=== PATIENT | female | born 1975 | race Caucasian/White ===

== ENCOUNTER 2017-03-22 07:22 | Day surgery (SDC) | payer OTHER ==
[~2017-03-22] VITALS: Ht 157.5 cm; Wt 86.0 kg
[~2017-03-22 07:22] MED LIST: 0.9% Sodium Chloride 1,000 ML IV SCH; ASPI81TA3 PO; FURO40TA4 PO; LEVO200T6 PO; LISI2.5T PO; METH750T3 PO; METO25TA3 PO; NPR500T PO; PANT40TA3 PO; SERT25TA6 PO; SPIR25TA3 PO; Sodium Chloride LOK Flush 10 mL Syringe IV PRN; fentaNYL-PF 50 mCg/mL 2 mL Inj IVPUSH PRN
[2017-03-22 07:36] VITALS: BP 115/63; PULSE 67; RESP 16; O2SAT 100
[2017-03-22 08:44] VITALS: BP 127/69; PULSE 65; RESP 16; O2SAT 98
[2017-03-22 08:54] VITALS: BP 118/68; PULSE 68; RESP 16; O2SAT 98
[2017-03-22 09:04] VITALS: BP 114/64; PULSE 68; RESP 16; O2SAT 98
--- NOTE | 2017-03-22 09:37 | ENDO ---
[address] [address] ENDOSCOPY PROCEDURE PATIENT: JUSTUS REGAN : 1975 MR#: [id number] ADMIT: 03/22/2017 JOB ID: [id number] DATE OF SERVICE: 03/22/2017 PREOPERATIVE DIAGNOSIS(ES): 1. Gastroesophageal reflux disease. 2. Abdominal pain. 3. Obstipation. POSTOPERATIVE DIAGNOSIS(ES): 1. Small hiatal hernia. 2. Normal colonoscopy to cecum. OPERATION: 1. Upper endoscopy with biopsy. 2. Colonoscopy into terminal ileum. SURGEON: Anam Edmond MD. INDICATIONS: A 42-year-old female, who has a past history of severe hypothyroidism resulting in nonischemic cardiomyopathy that resolved with replacement of her thyroid function. She has cholelithiasis. She has symptoms of GERD and abdominal pain and obstipation and at the request of Dr. Husain an upper endoscopy and colonoscopy were performed. FINDINGS: Her GE junction was at 36 cm from the incisors and the esophageal hiatus at 37 cm showing a 1 cm hiatal hernia. The distal esophageal mucosa was grossly normal, but it was biopsied. Retroflexed views of the cardia revealed a Hill Grade I flap valve. The fundus body and antrum of the stomach were grossly normal. Pylorus normal. Duodenum into the proximal third portion of the duodenum normal. Colon and terminal ileum and rectum normal. DESCRIPTION OF PROCEDURE: The procedure and sedation plan was discussed with the patient. Nursing staff and a procedural time-out was held. For both procedures she received 8 mg of Versed and 175 mcg of fentanyl. The Olympus GIF-H180J video endoscope was passed transorally, advanced into the proximal third portion of the duodenum, withdrawn with results stated above. Biopsies of the antrum were obtained for rapid H-pylori and of the gastroesophageal junction. She was repositioned a digital rectal exam was performed and the Olympus PCF-H190DL video colonoscope was passed transanally advanced into the terminal ileum withdrawn over 8 minutes 35 seconds. She had a good prep. There were no abnormalities including no evidence of polyps, inflammatory lesions, vascular lesions, or diverticulosis. Retroflexed views of the rectum were normal. IMPRESSION: 1. Small hiatal hernia. 2. Normal colonoscopy to the cecum. 3. The cause of her abdominal pain is not identified by the study. CC: WILLIAM Veras
--- NOTE | 2017-03-23 14:11 | PATH ---
SURGICAL PATHOLOGY Attending Physician:Vicki Carrasquillo CASE STATUS: Signed Out PATIENT NAME: JUSTUS REGAN PID: [id number] : 1975 DATE COLLECTED:03/22/2017 16:20 SPECIMEN: Esophagus, Biopsy CLINICAL HISTORY: 1. GEJ BX FINAL DIAGNOSIS: 1.GASTROESOPHAGEAL JUNCTION BIOPSIES: SQUAMOUS MUCOSA AND GASTRIC CARDIA-TYPE MUCOSA NEGATIVE FOR SPECIALIZED METAPLASIA OF MORAN' S-TYPE ESOPHAGUS. Negative for dysplasia and malignancy. Negative for squamous intraepithelial eosinophils. ICD10 K23.0 GROSS DESCRIPTION: The specimen is received in one formalin filled container labeled with the patient's name, sublabeled " GEJ " and consists of 3 portions of tissue which aggregate to 0.3 x 0.3 x 0.2 CM. The specimen is entirely submitted in one cassette. 03/22/2017 [facility] MICRO DESCRIPTION: See diagnosis. ICD-9 CODES: CPT CODES: 1: 73983 Electronically Signed Out Hakan Chou MD [facility] Pathology [facility] [address], [place] [address] Technical component performed at [facility], [facility] [address], [place], [address]
[2017-04-05] MEDS ORDERED: LEVO200T6 PO (10:37)
[2017-04-05] MEDS ORDERED: SERT50TA9 PO (10:37)
[2017-04-05] MEDS ORDERED: ROB500 PO (10:37)
[2017-04-05] MEDS ORDERED: MELO-259 PO (10:37)
[2017-04-05] MEDS ORDERED: ASPI-973 PO (10:37)
[2017-04-05] MEDS ORDERED: FUR20 PO (10:37)
[2017-04-05] MEDS ORDERED: TERB30CR15 TOPICAL (10:38)
[2017-04-05] MEDS ORDERED: SPIR25TA3 PO (10:38)
[2017-04-05] MEDS ORDERED: METO25TA3 PO (10:38)
== END 2017-03-22 23:59 | disposition home or self-care (01) ==
LOC: END 07:22
PROVIDERS: ATTEND Surgery
DX: K21.0 Gastro-esophageal reflux disease with esophagitis (principal); R10.9 Unspecified abdominal pain; K44.9 Diaphragmatic hernia without obstruction or gangrene; R19.4 Change in bowel habit; I10 Essential (primary) hypertension; I50.9 Heart failure, unspecified; I42.9 Cardiomyopathy, unspecified; I44.4 Left anterior fascicular block; E03.9 Hypothyroidism, unspecified; K80.20 Calculus of gallbladder without cholecystitis without obstruction; G47.33 Obstructive sleep apnea (adult) (pediatric); F32.9 Major depressive disorder, single episode, unspecified; N28.9 Disorder of kidney and ureter, unspecified; Z79.82 Long term (current) use of aspirin; F17.210 Nicotine dependence, cigarettes, uncomplicated
CPT/HCPCS: 43239; 45378; 88305; 99152; 99153; J7030

== ENCOUNTER 2017-04-09 05:40 | Day surgery (SDC) | payer OTHER ==
[~2017-04-09] VITALS: Ht 157.5 cm; Wt 87.2 kg
[2017-04-09] VITALS (11 sets, daily range): BP systolic 93–132; BP diastolic 53–77; PULSE 60–75; RESP 11–32; O2SAT 93–96
[~2017-04-09 05:40] MED LIST changes: -0.9% Sodium Chloride 1,000 ML IV SCH; +ASPI-973 PO; -ASPI81TA3 PO; +FUR20 PO; -FURO40TA4 PO; -LISI2.5T PO; +Lactated Ringer's 1,000 ML IV ONE; +MELO-259 PO; -METH750T3 PO; -NPR500T PO; -PANT40TA3 PO; +ROB500 PO; -SERT25TA6 PO; +SERT50TA9 PO; -Sodium Chloride LOK Flush 10 mL Syringe IV PRN; +TERB30CR15 TOPICAL; -fentaNYL-PF 50 mCg/mL 2 mL Inj IVPUSH PRN
[2017-04-09] MEDS ORDERED: Ondansetron 2 mg/mL 2 mL Inj ONE (05:41)
[2017-04-09] MEDS ORDERED: Glycopyrrolate 0.2 MG/ML 1mL Inj ONE (05:41)
[2017-04-09] MEDS ORDERED: Dexamethasone 4 mg/mL Inj ONE (05:41)
[2017-04-09] MEDS ORDERED: Propofol 10 mg/mL 20 mL Inj ONE (05:41)
[2017-04-09] MEDS ORDERED: MetoCLOpramide 5 mg/mL 2 mL Inj ONE (05:41)
[2017-04-09] MEDS ORDERED: Rocuronium 10 mg/mL 5 mL Inj ONE (05:41)
[2017-04-09] MEDS ORDERED: Neostigmine 1 mg/mL 10 mL Inj ONE (05:41)
[2017-04-09] MEDS ORDERED: MeTOProlol 1 mg/mL 5 mL Inj ONE (05:41)
[2017-04-09] MEDS ORDERED: fentaNYL-PF 50 mCg/mL 2 mL Inj ONE (05:41)
--- NOTE | 2017-04-09 07:19 | PCM.HPANE ---
Patient Data Surgeon Admitting Provider: Attending Provider:Abebe Husain MD Primary Care Physician:Ivana Traore Other Provider:Manan Harris Anesthesia Reason for Visit Cholecystitis Ht/WT & BMI Height (Feet): 5 Height (Inches): 2 Weight (Kilograms): 87.2 Body Mass Index 35.00 Allergies Coded Allergies: No Known Allergies (Verified Allergy, Unknown, 06/28/15) Past Anesthesia History Anesthesia History: Denies:: Abnormal Airway, Anesthesia Reactions, Difficult Intubation, Fam Anesthesia Reaction, Fam Malignant Hypertherm, Malignant Hyperthermia Diabetes History Hx Diabetes?: No MRSA MRSA: No Medications Blood Thinner: Aspirin Hypertension Medication: Yes Home Meds Incl Beta Mihai: Yes Date Beta Mihai Taken: Apr 08, 2017 Time Beta Mihai Taken: 0800 Reported Medications Metoprolol Succinate ER (Toprol XL)25 Mg Hvlayz79 Mg PO DAILY Ref 0 04/05/17 Terbinafine Cream 30 Gm Cream..g.1 Applic TOPICAL PRN skin irritation #30 GM 04/05/17 Spironolactone 25 Mg Twgnxv94 Mg PO DAILY #30 TABLET Ref 0 04/05/17 Sertraline HCl (Sertraline)50 Mg Vdtzma82 Mg PO DAILY 30 Days Ref 0 04/05/17 Methocarbamol 500 Mg Nwdqae233 Mg PO PRN For Spasm 04/05/17 Meloxicam 7.5 Mg Tablet7.5 Mg PO DAILY 30 Days Ref 0 04/05/17 Levothyroxine 200 Mcg Zqktup841 Mcg PO DAILY Ref 0 04/05/17 Furosemide 20 Mg Tab20 Mg PO DAILY 30 Days Ref 0 04/05/17 Aspirin 81 Mg Rcwvob28 Mg PO DAILY Ref 0 04/05/17 Discontinued Reported Medications Pantoprazole DR 40 Mg Tablet.dr40 Mg PO DAILY Ref 0 03/20/17 Levothyroxine 200 Mcg Vttjin908 Mcg PO DAILY Ref 0 03/20/17 Metoprolol Succinate ER (Toprol XL)25 Mg Ebqzsk49 Mg PO DAILY Ref 0 03/20/17 Sertraline HCl (Sertraline)25 Mg Wvqugx35 Mg PO DAILY 30 Days Ref 0 03/20/17 Furosemide 40 Mg Mubscp47 Mg PO DAILY 03/20/17 Lisinopril 2.5 Mg Tablet2.5 Mg PO DAILY 30 Days Ref 0 03/16/15 Aspirin Chew 81 Mg Tab.chew81 Mg PO DAILY #1 BOTTLE Ref 0 03/16/15 Spironolactone 25 Mg Jdnufl35 Mg PO DAILY #30 TABLET Ref 0 03/16/15 Discontinued Scripts Methocarbamol 750 Mg Dsvlwj259 Mg PO QID PRN For Spasm #20 TABLET Ref 0 Prov:Jett Marquis RADIATOR SPECIALIST 06/28/15 Naproxen 500 Mg Vuj067 Mg PO BID PRN For Pain #20 TABLET Ref 0 Prov:Jett Marquis RADIATOR SPECIALIST 06/28/15 History History of ENT Problems?: No HEENT History: Denies:: Abnormal Airway Cataracts Difficult Intubation Dysphagia Glaucoma Hearing Problem Sinus Problem TMJ Denture Type: None Teeth Condition: Within Normal Limits Hx of Heart Problems?: Yes Cardiovascular History: Positive for:: Coronary Artery Disease (cardiomyopathy ) Hypertension Denies:: AICD Pacemaker Valvular Heart Disease (echo 2016- ef 60-65%) Hx of Respiratory Problem?: No Respiratory History: Positive for:: Use of C-PAP Machine (prior use of- no longer has) Denies:: Asthma COPD Emphysema Oxygen Administration Pneumonia Tuberculosis Hx Neurologic Problems?: Yes Neurological History: Positive for:: Dizziness Seizures (episode 5 years ago- 3 seizures- MRI- Dr her nothing to be concerned ) Denies:: CVA Dementia Headaches Multiple Sclerosis Parkinson's Disease Hx of GI Problems?: Yes Hx of Problems?: Yes Genitourinary History: Positive for:: Kidney Stones (past hx of, passed spontaneously) Urinary Tract Infection (hx of chronic, none recently) Female Hx: Denies:: Currently Endometriosis Pelvic Inflammatory Problems with Breasts? Skin History: Denies:: History Skin Disorders? Pressure Ulcers Hx Musculoskeletal Problems?: Yes Musculoskeletal History: Positive for:: Back Injury (hx of back surgery) Osteoarthritis Denies:: Joint Replacement Musculoskeletal Trauma Myasthenia Gravis Rheumatoid Arthritis Hx of Psycho/Social Problems?: Yes Psycho Social History: Positive for:: Anxiety Hx Depression Hx Surgeries?: Yes (Back Surgery 01/2015) Hx Any Other Health Problems?: Yes Other History: Positive for:: Hospitalization Thyroid Disease (Lobito's) Denies:: Cancer History Blood Transfusions: Positive for:: Accept Blood Products? Denies:: Blood Transfusions Hx Diabetes: No Hx Alcohol Use: NoHx Substance Use: Yes (Marijuana edible and inhaled) Smoking Status: Current Every Day Smoker Have You Smoked inLast 12 mo: Yes (February 2017- hx of 14 cig daily) Stop/Bang Treated for Sleep Apnea?: No Do You Have a CPAP Machine?: No S-Snoring: Do You Snore Loudly: No T-Tired: feel tired, fatigued: Yes O-Obsered: Observed not breath: No P-Blood Pressure: treated: Yes B- Body Mass Index > 35 kg/m2: Yes A- Age over 50: No N- Neck Large Circumference: No G- Gender Male: No GLEN Total Score: 3 GLEN Risk Assessment: Low Risk, <3 Yes Risk Assessment Category Category 1A: Patient has history of documented sleep apnea, and HAS NOT received any narcotic, sedative or anesthesia administration during this stay. Category 1B: Patient has history of documented sleep apnea, and HAS received any narcotic , sedative or anesthesia administration during this stay Category 2: Patient has SUSPECTED Obstructive Sleep Apnea, and HAS received any narcotic , sedative or anesthesia administration during this stay. Category 3: Patient has SUSPECTED Obstructive Sleep Apnea and HAS NOT received narcotic, sedative or anesthesia administration during this stay. Category 4: Outpatient in Procedural Areas with known sleep apnea or who screen positive for High Risk via the STOP/BANG questionnaire. Exam Exam Vital Signs Vital Signs Date Time Temp Pulse Resp B/P Pulse Ox O2 Delivery O2 Flow Rate FiO2 04/09/17 06:06 36.2 70 16 114/72 95 Room Air General Appearance: Oriented X3 HEENT/AIRWAY: MP 2 Lungs: Normal Air Movement Heart: Regular Rate/Rhythm Meds/Labs/Diagnostics Admission Meds Current Medications Lactated Ringer's (Lr) 1,000 ml @ 10 mls/hr Q24H ONCE IV Last administered on 04/09/17t 06:01; Start 04/09/17 at 05:00; Stop 04/10/17 at 04:59 Plan Impression Patient chart reviewed, patient interviewed and anesthestic plan with risks, benefits, and alternatives discussed, and informed consent obtained. ASA Physical Status: ASA3 Severe Disease Anesthetic Plan: GA Bene/Risks/Altern/Consents: Yes HP Complete Prior to Induction: Yes Arvind Carrion MD Apr 09, 2017 07:19
[2017-04-09] MEDS: levoFLOXacin Inj 500 MG in IV Premix 1 EACH IV ONE ×2 (07:26→07:47)
[2017-04-09] MEDS ORDERED: Iopamidol-300 50 mL Inj IV ONE (07:46)
[2017-04-09] MEDS ORDERED: Bupivacaine-MPF 0.5% 30 mL Inj INFILTRATE ONE (07:46)
[2017-04-09] MEDS ORDERED: Lactated Ringer's 500 ML IV PRN (08:59)
[2017-04-09] MEDS ORDERED: Lactated Ringer's 1,000 ML IV SCH (08:59)
[2017-04-09] MEDS ORDERED: Ondansetron 2 mg/mL 2 mL Inj IVPUSH PRN (09:00)
[2017-04-09] MEDS ORDERED: Dexamethasone 4 mg/mL Inj IVPUSH PRN (09:00)
[2017-04-09] MEDS ORDERED: Phenylephrine 10,000 mCg/mL Inj IVPUSH PRN (09:00)
[2017-04-09] MEDS ORDERED: MetoCLOpramide 5 mg/mL 2 mL Inj IVPUSH PRN (09:00)
[2017-04-09] MEDS ORDERED: EPHEDrine Sulfate 50 mg/mL Inj IVPUSH PRN (09:00)
[2017-04-09] MEDS ORDERED: OXYC-474 PO (09:09)
[2017-04-09] MEDS ORDERED: POLY17PO6 PO (09:09)
--- NOTE | 2017-04-09 09:36 | PCM.SURGPO ---
Immediate Operative Note Date of Surgery: Apr 09, 2017 Pre Operative Diagnosis Cholelithiasis Post Operative Diagnosis Cholelithiasis Procedure Lapatroscopic Cholecystectomy with Cholangiogram Surgeon and Staffing Manager Surgeon: Abebe Husain MD Assistants: VARSHA Bradley, VARSHA Meadows Findings Normal Cholangiogram Complications There were no periprocedural complications identified. Surgical Specimen Removed: Yes Specimen sent to Pathology: Yes Anesthetic Administered: GA Grafts, Implants: None Output, Estimated Blood Loss: 5 Blood Admin during surgery: No Attending Statement Music Teacher listed was medically necessary for the successful completion of the case Abebe Husain MD Apr 09, 2017 09:35
[2017-04-09] MEDS: HYDROmorphone 1 mg/mL Inj IVPUSH PRN ×2 (09:56→10:02)
--- NOTE | 2017-04-09 09:57 | PCM.ANEP1 ---
Post Anesthesia PACU Phase 1 Assessment Vital Signs Vital Signs Date Time Temp Pulse Resp B/P Pulse Ox O2 Delivery O2 Flow Rate FiO2 04/09/17 09:35 65 18 127/67 94 Simple Mask 8 04/09/17 09:30 66 18 118/66 94 Simple Mask 8 04/09/17 09:25 65 18 111/62 94 Simple Mask 8 04/09/17 09:20 37.0 63 16 93/53 95 Simple Mask 8 04/09/17 06:06 36.2 70 16 114/72 95 Room Air Anesthetic Administered: GA Level of Alertness: Awake, talking Pain: No Nausea or Vomiting: No CV Function & Hydration Stable: Yes Airway Device: Lungs: Normal Air Movement PACU Phase 2 Assessment Patient Instructions Provided: N/A Arvind Carrion MD Apr 09, 2017 09:57
[2017-04-09] MEDS: fentaNYL-PF 50 mCg/mL 2 mL Inj IVPUSH PRN ×3 (10:07→10:25)
--- NOTE | 2017-04-10 08:45 | DRSVH ---
PROCEDURE: X-RAY OPERATIVE CHOLANGIOGRAM ([id number]) INDICATIONS: CHOLECYSTITIS COMPARISON: None. FINDINGS: Biliary ducts: The surgeon injected contrast into the biliary ducts after cannulation of the cystic duct stump. Visualized intra- and extrahepatic bile ducts are normal in caliber, without strictures. No intraluminal filling defects to suggest retained ductal stones or sludge. No evidence for iatro genic ductal injury. Mild reflux into the pancreatic duct. Duodenum: Contrast flows promptly through the sphincter of Oddi into the duodenum, which appears nor mal in caliber. IMPRESSION: Normal operative angiogram. Dictated by: Neo VIDES Interpreted: Simon Rosas MD on 04/09/2017 at 10:46 Approved by: Simon Rosas M.D. on 04/10/2017 at 8:43
--- NOTE | 2017-04-10 15:19 | PATH ---
SURGICAL PATHOLOGY Attending Physician:Abebe Husain MD CASE STATUS: Signed Out PATIENT NAME: JUSTUS REGAN PID: [id number] : 1975 DATE COLLECTED:04/09/2017 15:53 SPECIMEN: Gallbladder CLINICAL HISTORY: CHOLECYSTITIS 1. GALLBLADDER FINAL DIAGNOSIS: 1.GALLBLADDER: CHOLELITHIASIS WITH ASSOCIATED CHRONIC CHOLECYSTITIS. ICD10 K80.66 GROSS DESCRIPTION: The specimen is received in one formalin filled container labeled with the patient's name, sublabeled "gallbladder" and consists of an intact 8.0 x 3.0 x 3.0 CM gallbladder. The serosa is smooth. The wall is 0.1-0.2 CM in thickness. The mucosa is a green mariscal in color. The lumen contains a thick green mucoid material and approximately 20 green mariscal multifaceted calculi which range in size from 0.5-1.2 CM in greatest dimension. 5 artist's representative sections are submitted in one cassette. 04/09/2017 [facility] MICRO DESCRIPTION: See diagnosis. ICD-9 CODES: CPT CODES: 1: 25046 Electronically Signed Out Hakan Chou MD [facility] Pathology [facility] [address], [place] [address] Technical component performed at [facility], [address] [place] [address] Ave[address], [place], [address]
--- NOTE | 2017-04-10 15:34 | OP ---
[address] [address] OPERATIVE REPORT PATIENT: JUSTUS REGAN : 1975 MR#: [id number] ADMIT: 04/09/2017 JOB ID: [id number] DATE OF SURGERY: 04/09/2017 PREOPERATIVE DIAGNOSIS(ES): Cholelithiasis. POSTOPERATIVE DIAGNOSIS(ES): Cholelithiasis. PROCEDURE PERFORMED: Laparoscopic cholecystectomy with intraoperative cholangiogram. SURGEON: Abebe Husain MD. ASSISTANTS: Emigdio Alvarez PA-C and Santos Vanegas PA-C. INDICATIONS: The patient is a 42-year-old lady who had chest pain and shortness of breath prompting her to go to urgent care in August 2016, when she was eventually found to have gallstones. Cardiac event was ruled out, and she then saw me in consultation and after that had an endoscopy and colonoscopy without other explanations for her pain. After discussing the risks, benefits and alternatives, she is here today for a laparoscopic cholecystectomy with cholangiogram. PROCEDURE DETAILS: She was placed in a supine position. Underwent smooth induction of general anesthesia. Abdomen was prepped and draped in the usual sterile fashion. Surgical time-out was undertaken using safety checklist, and all were in agreement. I began by making a supraumbilical incision and entered the abdomen using combination of open Maynor technique and Optiview trocar. After that, I placed three 5 mm ports in the epigastrium and right upper quadrant, and upsized the supraumbilical port to a 12. After that, I retracted the gallbladder cephalad and to the right, and dissected the triangle of Calot anteriorly and posteriorly. I then dissected the cystic artery and divided it between clips and then clipped the cystic duct on the specimen side and obtained a cholangiogram, which showed no obvious filling defects. I then clipped the cystic duct doubly on the patient's side and divided it, and then dissected the gallbladder off the liver bed with good hemostasis, placed it in an EndoCatch bag and extracted it through the umbilical port site. I suctioned all fluid free from the right upper quadrant and closed the supraumbilical port site fascia with [id number] 0 Vicryl suture. The skin was reapproximated with 4-0 Monocryl. Steri-Strips and sterile dressing were applied. The patient was recovered from anesthesia and was taken to the recovery room in stable condition.
== END 2017-04-09 23:59 | disposition home or self-care (01) ==
LOC: SAS 05:40
PROVIDERS: ATTEND Student in an Organized Health Care Education/Training Program
DX: K80.10 Calculus of gallbladder with chronic cholecystitis without obstruction (principal); I10 Essential (primary) hypertension; I51.9 Heart disease, unspecified; I42.8 Other cardiomyopathies; I44.4 Left anterior fascicular block; E03.9 Hypothyroidism, unspecified; G47.33 Obstructive sleep apnea (adult) (pediatric); N28.9 Disorder of kidney and ureter, unspecified; R73.01 Impaired fasting glucose; M19.90 Unspecified osteoarthritis, unspecified site; F32.9 Major depressive disorder, single episode, unspecified; F41.9 Anxiety disorder, unspecified; F17.210 Nicotine dependence, cigarettes, uncomplicated; Z79.82 Long term (current) use of aspirin
CPT/HCPCS: 47563; 74300; 88304; J1100; J1170; J2405; J2710; J2765; J3010; J7120; Q9967